=== PATIENT | female | born 1965 ===

== ENCOUNTER 2021-01-05 15:24 | Emergency (ER) | payer OTHER ==
[~2021-01-05] VITALS: Ht 172.7 cm; Wt 104.0 kg
[2021-01-05] MEDS ORDERED: HYDROCODONE/ACETAMINOPHEN 5/325MG TABLET PO ONE (16:15)
[2021-01-05] MEDS ORDERED: IBUP-2029 MT (17:30)
[2021-01-05 18:56] VITALS: BP 145/85
== END 2021-01-05 18:58 | disposition home or self-care (01) ==
LOC: ER 15:24
DX: S52.122A Displaced fracture of head of left radius, initial encounter for closed fracture (principal); S52.612A Displaced fracture of left ulna styloid process, initial encounter for closed fracture; I10 Essential (primary) hypertension; W18.39XA Other fall on same level, initial encounter; Y93.89 Activity, other specified; Y92.89 Other specified places as the place of occurrence of the external cause; Y99.8 Other external cause status; Z88.2 Allergy status to sulfonamides
CPT/HCPCS: 29125; 73110; 99283